=== PATIENT | male | born 1995 | race Two or more races ===

== ENCOUNTER 2017-02-09 09:38 | Emergency (ER) | payer SELFPAY ==
[2017-02-09 09:49] VITALS: BP 154/81
[2017-02-09] MEDS ORDERED: OFLO5DRO7 AD (09:57)
--- NOTE | 2017-02-09 09:57 | PHYS DOC ---
Adult General Chief Complaint Chief Complaint: EARACHE/EAR PAIN [facility] HPI Patient is a 21 year old male who presents with right ear pain with drainage that began 3 days ago. Patient denies any fever. Review of Systems Review of Systems Constitutional: Denies fever or chills [] HENT: Right ear pain with drainage. Denies nasal congestion or sore throat [] Respiratory: Denies cough or shortness of breath [] Cardiovascular: No additional information not addressed in HPI [] Musculoskeletal: Denies back pain or joint pain [] Integument: Denies rash or skin lesions [] Neurologic: Denies headache, focal weakness or sensory changes [] Physical Exam Physical Exam Constitutional: Well developed, well nourished, no acute distress, non-toxic appearance. [] HENT: Normocephalic, atraumatic, bilateral external ears normal, oropharynx moist, no oral exudates, nose normal. [] Right external ear appears swollen. Right ear canal has mild amount of yellow exudate. The ear canal is narrowed. Tragus is very painful on exam. Cardiovascular:Heart rate regular rhythm, no murmur [] Lungs & Thorax: Bilateral breath sounds clear to auscultation [] Skin: Warm, dry, no erythema, no rash. [] Back: No tenderness, no CVA tenderness. [] Extremities: No tenderness, no cyanosis, no clubbing, ROM intact, no edema. [] Neurologic: Alert and oriented X 3, normal motor function, normal sensory function, no focal deficits noted. [] Psychologic: Affect normal, judgement normal, mood normal. [] EKG EKG [] Radiology/Procedures Radiology/Procedures [] Course & Med Decision Making Course & Med Decision Making Pertinent Labs and Imaging studies reviewed. (See chart for details) This is a 21-year-old male patient presenting to the ED today with otitis externa. Patient was discharged with tobramycin. Recommended Tylenol every 4 hours and Motrin every 6 hours as needed for pain or fever. Follow-up with primary care doctor in 1-2 weeks. Dragon Disclaimer Dragon Disclaimer This electronic medical record was generated, in whole or in part, using a voice recognition dictation system. Departure Departure Impression: Primary Impression: Right otitis externa Disposition: HOME, SELF-CARE Condition: STABLE Patient Instructions: Otitis Externa Additional Instructions: You were seen for right ear canal infection. Use the eardrops prescribed as ordered. Follow-up with your own doctor in 1-2 weeks. Take Tylenol every 4 hours and Motrin every 6 hours as needed for pain or fever. Scripts Ofloxacin (OFLOXACIN) 5 Ml Drops 5 DROP AD BID, #10 ML Prov: DESTINY HOOD APRN 02/09/17 Problem Qualifiers Primary Impression: Right otitis externa Otitis externa type: other infective Chronicity: acute Qualified Codes: H60.391 - Other infective otitis externa, right ear DESTINY HOOD [employer]ESSING CLERK Feb 09, 2017 09:57
[2017-02-09] MEDS ORDERED: AMOX1TAB61 PO (21:20)
== END 2017-02-09 10:11 | disposition home or self-care (01) ==
LOC: ER 09:38
DX: H60.391 Other infective otitis externa, right ear (principal)
CPT/HCPCS: 99283

== ENCOUNTER 2017-02-09 20:44 | Emergency (ER) | payer SELFPAY ==
[~2017-02-09] VITALS: Ht 172.7 cm; Wt 81.6 kg
[~2017-02-09 20:44] MED LIST: OFLO5DRO7 AD
--- NOTE | 2017-02-09 20:50 | PHYS DOC ---
Past Medical History Past Medical History: No Pertinent History Past Surgical History: No Surgical History Alcohol Use: None Drug Use: None Adult General Chief Complaint Chief Complaint: EARACHE/EAR PAIN HPI HPI Patient is a 21 year old male who presents to the ED complaining of right ear pain x 3 days. She was seen in the ED earlier this morning and give ofloxacin. Patient states that the antibiotic drops that he was given for his ear has not improved his pain and his pain is worse. Requesting something to help with is pain. Patient states he has used the drops twice. Denies nausea and vomiting, cough, abdominal pain, vision changes, hearing loss, dizziness, weakness, chest pain, shortness of breath, or syncope. Review of Systems Review of Systems Constitutional: Denies fever or chills [] Eyes: Denies change in visual acuity, redness, or eye pain [] HENT: Denies nasal congestion or sore throat. Complains of ear pain and drainage. [] Respiratory: Denies cough or shortness of breath [] Cardiovascular: No additional information not addressed in HPI [] GI: Denies abdominal pain, nausea, vomiting, bloody stools or diarrhea [] : Denies dysuria or hematuria [] Musculoskeletal: Denies back pain or joint pain [] Integument: Denies rash or skin lesions [] Neurologic: Denies headache, focal weakness or sensory changes [] Endocrine: Denies polyuria or polydipsia [] Current Medications Current Medications Current Medications Medications (Trade) Dose Ordered Sig/Liliana Start Time Stop Time Status Last Admin Dose Admin Acetaminophen/ Hydrocodone Bitart (Lortab 5/325) 1 tab 1X ONCE 02/09/17 21:15 02/09/17 21:16 DC 02/09/17 21:25 1 TAB Ceftriaxone Sodium (Rocephin Im) 1 gm 1X ONCE 02/09/17 21:15 02/09/17 21:16 DC 02/09/17 21:25 1 GM Lidocaine HCl (Xylocaine-Mpf 1% Vial) 2 ml STK-MED ONCE 02/09/17 21:19 02/09/17 21:20 DC Allergies Allergies Allergies Coded Allergies Type Severity Reaction Last Updated Verified No Known Drug Allergies 02/09/17 No Physical Exam Physical Exam Constitutional: Well developed, well nourished, no acute distress, non-toxic appearance. [] HENT: Normocephalic, atraumatic, MILD RIGHT EAR CANAL SWELLING AND YELLOW DRAINAGE CONSISTENT WITH OTITIS EXTERNA. UNABLE TO VISUALIZE RIGHT TM, NO MASTOID TENDERNESS. oropharynx moist, no oral exudates, nose normal. [] Eyes: PERRLA, EOMI, conjunctiva normal, no discharge. [] Neck: Normal range of motion, no tenderness, supple, no stridor. [] Cardiovascular:Heart rate regular rhythm, no murmur [] Lungs & Thorax: Bilateral breath sounds clear to auscultation [] Abdomen: Bowel sounds normal, soft, no tenderness, no masses, no pulsatile masses. [] Skin: Warm, dry, no erythema, no rash. [] Back: No tenderness, no CVA tenderness. [] Extremities: No tenderness, no cyanosis, no clubbing, ROM intact, no edema. [] Neurologic: Alert and oriented X 3, normal motor function, normal sensory function, no focal deficits noted. [] Psychologic: Affect normal, judgement normal, mood normal. [] Current Patient Data Vital Signs Vital Signs Date Time Temp Pulse Resp B/P (MAP) Pulse Ox O2 Delivery O2 Flow Rate FiO2 02/09/17 20:53 100.6 109 18 96 Room Air 100.6 EKG EKG [] Radiology/Procedures Radiology/Procedures [] Course & Med Decision Making Course & Med Decision Making Pertinent Labs and Imaging studies reviewed. (See chart for details) []Patient's pain relieved in ED. Patient given Rocephin in ED. Advised to continue treatment with ofloxacin outpatient. Offered Ciprodex alternative but family states unable to afford. Discussed follow-up with ENT in 1-2 days. Provided contact information/education. Discussed reasons to return to the ED. Patient and family understands and agrees with plan. Dragon Disclaimer Dragon Disclaimer This electronic medical record was generated, in whole or in part, using a voice recognition dictation system. Departure Departure Impression: Primary Impression: Right otitis externa Disposition: 01 HOME, SELF-CARE Condition: IMPROVED Referrals: NO PCP (PCP) Patient Instructions: Otitis Externa Scripts Amoxicillin/Potassium Clav (AUGMENTIN 875-125 TABLET) 1 Each Tablet 1 TAB PO BID, #14 TAB Prov: RICK GLORIA 02/09/17 RICK GLORIA Feb 09, 2017 20:50
[2017-02-09 20:53] VITALS: BP 141/77
[2017-02-09] MEDS ORDERED: cefTRIAXone IM 1 GM VIAL IM ONE (21:15)
[2017-02-09] MEDS ORDERED: HYDROcodone/APAP 5/325MG 1 TAB TABLET PO ONE (21:15)
[2017-02-09] MEDS ORDERED: LIDOCAINE 1% PF 2 ML VIAL. ONE (21:19)
[2017-02-09] MEDS ORDERED: AMOX1TAB61 PO (21:20)
== END 2017-02-09 21:52 | disposition home or self-care (01) ==
LOC: ER 20:44
DX: H60.91 Unspecified otitis externa, right ear (principal)
CPT/HCPCS: 96372; 99283; J0696